=== PATIENT | female | born 1965 | race Two or more races ===

== ENCOUNTER 2025-07-19 07:37 | Outpatient (CLI) | payer OTHER ==
[~2025-07-19 07:37] MED LIST: AMOX-CLAV 875-1 EACH PO; CIPRO500 MG PO; KETO10TA2 PO; LEVSIN/SL0.125 MG PO; METOPROLOL SUCC25 MG PO; MUCINEX1200 MG PO; PRAZOSIN HCL1 MG PO; PROMETH-CODEIN 65 ML PO; PROTONIX40 MG PO; TOPROL XL25 M1
[2025-07-19 08:27] LABS: URINE APPEARANCE Cloudy; URINE BILIRRUBIN Negative (NEGATIVE); URINE BLOOD Negative; URINE COLOR Yellow; URINE GLUCOSE Negative (NEGATIVE); URINE KETONE Negative (NEGATIVE); URINE LEUKOCYTE Negative; URINE NITRATE Negative; URINE PROTEIN Negative (NEGATIVE); URINE UROBILINOGEN 0.2 E.U./dl
[2025-07-19 08:29] LABS: BASO % 0.7 % (0.1-1.2); EOS # 0.19 (0.04-0.54); EOS % 3.3 % (0.7-7.0); LYMPH # 2.65 (1.18-3.74); LYMPH % 45.8 % (19.3-53.1); MEAN PLATELET VOLUME 9.20 fl (9.4-12.4); MONO # 0.57 (0.24-0.82); MONO % 9.9 % (4.7-12.5); NEUT # 2.32 (1.56-6.13); NEUT % 40.1 % (34.0-71.1); RED CELL DISTRIBUTION WIDTH 13.2 % (11.6-14.4)
[2025-07-19 08:31] LABS: URINE RBC 3.5 uL (0.0-20.8)
[2025-07-19 08:36] LABS: URINE BACTERIA 3.5 uL (0.0-1933); URINE CAST 0.00 uL (0.0-1.40); URINE EPITHELIAL CELLS 0.4 uL (0.0-38.8); URINE WBC 1.0 uL (0.0-23.2)
[2025-07-19 09:18] LABS: ALT/SGPT 25.0 U/L (12-78); AST/SGOT 12.0 U/L (15-37); BILIRUBIN TOTAL 0.96 mg/dL (0.3-1.2); BUN CREA RATIO 22.0 (7.0-25.0); CHOL HDL RATIO 2.7 (0-5.0); CREATININE SERUM 0.78 mg/dL (0.55-1.02); GFR 75.33; GLOBULINA 2.8 G/DL (2.4-3.5); GLUCOSE FASTING 96.0 mg/dL (65-100); HDL 79.0 mg/dl (40-60); LDL 119.0 mg/dl (0-130); OSMOLALITY SERUM 288.0 MOSM/KG (275-295); TSH 2.21 uIU/mL (0.358-3.74); VLDL 14.0 (0-39)
== END 2025-07-19 07:46 | disposition home or self-care (01) ==
LOC: LAB 07:37
PROVIDERS: ATTEND General Practice
DX: R73.09 Other abnormal glucose (principal); R50.9 Fever, unspecified; R79.9 Abnormal finding of blood chemistry, unspecified; N39.0 Urinary tract infection, site not specified; E11.69 Type 2 diabetes mellitus with other specified complication; E53.9 Vitamin B deficiency, unspecified; Z12.11 Encounter for screening for malignant neoplasm of colon; E78.2 Mixed hyperlipidemia; E03.8 Other specified hypothyroidism

== ENCOUNTER 2025-07-19 08:23 | Outpatient (CLI) | payer OTHER | END 2025-07-19 08:30 | disposition home or self-care (01) | LOC: MAMO-SONO 08:23 | PROVIDERS: ATTEND General Practice | DX: N60.12 Diffuse cystic mastopathy of left breast (principal); N60.11 Diffuse cystic mastopathy of right breast; Z12.31 Encounter for screening mammogram for malignant neoplasm of breast ==